=== PATIENT | male | born 1990 | race Caucasian/White ===

== ENCOUNTER 2017-05-21 20:40 | Emergency (ER) | payer OTHER ==
[~2017-05-21] VITALS: Ht 175.3 cm; Wt 77.6 kg
[2017-05-21 21:04] VITALS: BP 107/51; Ht 175.3 cm; Wt 77.6 kg
== END 2017-05-21 22:57 | disposition home or self-care (01) ==
LOC: ED 20:40
DX: S93.601A Unspecified sprain of right foot, initial encounter (principal); V89.2XXA Person injured in unspecified motor-vehicle accident, traffic, initial encounter; Y93.89 Activity, other specified; Y92.89 Other specified places as the place of occurrence of the external cause; Y99.8 Other external cause status